=== PATIENT | female | born 1975 | race African-American/Black ===

== ENCOUNTER 2017-02-27 13:53 | Emergency (ER) | payer OTHER, BC ==
[~2017-02-27] VITALS: Ht 167.6 cm; Wt 88.0 kg
[2017-02-27 13:54] VITALS: BP 169/88; PULSE 88; RESP 15; TEMP 98.1; O2SAT 99
[2017-02-27] MEDS ORDERED: IBUP800T23 PO (15:09)
[2017-02-27] MEDS ORDERED: ROBA500T PO (15:09)
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
[2017-02-27] MEDS ORDERED: IBUPROFEN 800 MG TAB PO ONE (15:15)
[2017-02-27] MEDS ORDERED: METHOCARBAMOL 500 MG TAB PO ONE (15:15)
== END 2017-02-27 15:27 | disposition home or self-care (01) ==
LOC: NEPK 13:53
DX: S46.812A Strain of other muscles, fascia and tendons at shoulder and upper arm level, left arm, initial encounter (principal); R51 Headache; V49.9XXA Car occupant (driver) (passenger) injured in unspecified traffic accident, initial encounter
CPT/HCPCS: 99283